=== PATIENT | female | born 1985 | race Caucasian/White ===

== ENCOUNTER 2018-11-14 11:14 | Emergency (ER) | payer OTHER ==
[2018-11-14 11:36] VITALS: TEMP 98.1
--- NOTE | 2018-11-14 12:23 | ED ---
General Adult HPI - General Source: patient, family, RN notes reviewed Mode of arrival: ambulatory Limitations: no limitations <Tre Saucedo - Last Filed: 11/14/18 14:04> <John Nur - Last Filed: 11/14/18 14:33> - General Chief complaint: Extremity Problem,Nontraumatic Stated complaint: Swelling in feet Time Seen by Provider: 11/14/18 11:40 - History of Present Illness Initial comments: 33-year-old female without any significant past medical history presents to the emergency determine for bilateral ankle swelling. Patient states this has been ongoing for a couple days. Patient states she is constantly on her feet and walks 20,000 steps per day. 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 Patient thinks she sees some swelling in her fingers as well. Patient states the swelling improved at night when she had her feet elevated on the bed and then worsened again this morning after she began walking around. States she has some minor pain of the bilateral ankles. Denies any chest pain or shortness of breath. Patient has no other complaints at this time including shortness of breath, chest pain, abdominal pain, nausea or vomiting, headache, or visual changes. (Tre Saucedo) - Related Data Allergies Allergy/AdvReac Type Severity Reaction Status Date / Time Penicillins Allergy Itching Verified 11/14/18 11:32 Review of Systems ROS Other: All systems not noted in ROS Statement are negative. <Tre Saucedo - Last Filed: 11/14/18 14:04> ROS Other: All systems not noted in ROS Statement are negative. <John Nur - Last Filed: 11/14/18 14:33> ROS Statement: Those systems with pertinent positive or pertinent negative responses have been documented in the HPI. Past Medical History Past Medical History: No Reported History History of Any Multi-Drug Resistant Organisms: None Reported Past Surgical History: Breast Surgery, Tonsillectomy Past Psychological History: Anxiety, Depression Smoking Status: Current every day smoker Past Alcohol Use History: Occasional Past Drug Use History: None Reported <Tre Saucedo - Last Filed: 11/14/18 14:04> General Exam Limitations: no limitations General appearance: alert, in no apparent distress Head exam: Present: atraumatic, normocephalic, normal inspection Eye exam: Present: normal appearance, PERRL, EOMI. Absent: scleral icterus, conjunctival injection, periorbital swelling ENT exam: Present: normal exam, mucous membranes moist Neck exam: Present: normal inspection, full ROM. Absent: tenderness, meningismus, lymphadenopathy Respiratory exam: Present: normal lung sounds bilaterally. Absent: respiratory distress, wheezes, rales, rhonchi, stridor Cardiovascular Exam: Present: regular rate, normal rhythm, normal heart sounds. Absent: systolic murmur, diastolic murmur, rubs, gallop, clicks GI/Abdominal exam: Present: soft, normal bowel sounds. Absent: distended, tenderness, guarding, rebound, rigid Extremities exam: Present: other (Patient has 1+ pitting edema in the bilateral feet and ankles. No significant pain. Swelling is equal bilaterally. Patient states she feels like she has lydia her fingers however there is none evident on exam. No S3 status intact in bilateral lower extremities with the DP pulse of 2+ and capillary refill less than 2 seconds. Normal skin color.) Neurological exam: Present: alert, oriented X3, CN II-XII intact Psychiatric exam: Present: normal affect, normal mood <Tre Saucedo - Last Filed: 11/14/18 14:04> Course Vital Signs 11/14/18 11/14/18 11:32 14:13 Temperature 98.1 F Pulse Rate 60 58 L Respiratory 18 16 Rate Blood Pressure 111/71 112/68 O2 Sat by Pulse 96 98 Oximetry Medical Decision Making - Lab Data Result diagrams: 11/14/18 12:22 11/14/18 12:22 <Tre Saucedo - Last Filed: 11/14/18 14:04> - Lab Data Result diagrams: 11/14/18 12:22 11/14/18 12:22 <John Nur - Last Filed: 11/14/18 14:33> - Medical Decision Making 33-year-old female without any significant past medical history presents for sunni ateral leg sling. 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 States it has been 100s again she was outside mowing her lawn. States the swelling is in her ankles and seemed to get better when she was sleeping and had her legs elevated and then worsened again this morning. On exam there is 1+ pitting edema noted of bilateral ankles. No significant tenderness noted of the calves. No redness or erythema. Negative Homans sign bilaterally. Lab work was obtained to evaluate kidney function. CBC and CMP are unremarkable. GFR greater than 90. Urine does not show any sign of evidence of infection. HCG is negative. BNP is normal. She was also evaluated by Dr. Nur. Offered ultrasound as well to evaluate for DVT but the patient refuses. In depth conversation was had with patient about compression stockings and keeping feet elevated when resting. Patient will follow up with primary care and return here for any worsening symptoms which were discussed with her including pain, redness, or worsening swelling. (Tre Saucedo) I saw and evaluated this patient with the PA. I agree with work up and disposition. I spoke to the patient regarding the possibility of a DVT though she is very low risk. I offered a lower extremity duplex, but patient declined. I discussed concerning signs and symptoms that should prompt immediate return to the ED, she verbalizes understanding. Wells' Criteria for DVT from [email or web address] on 11/14/2018 All calculations should be rechecked by clinician prior to use RESULT SUMMARY: -2 points Low risk group for DVT. Unlikely according to Wells DVT studies. INPUTS: Active cancer > 0 = No Bedridden recently >3 days or major surgery within 12 weeks > 0 = No Calf swelling >3 cm compared to the other leg > 0 = No Collateral (nonvaricose) superficial veins present > 0 = No Entire leg swollen > 0 = No Localized tenderness along the deep venous system > 0 = No Pitting edema, confined to symptomatic leg > 0 = No Paralysis, paresis, or recent plaster immobilization of the lower extremity > 0 = No Previously documented DVT > 0 = No Alternative diagnosis to DVT as likely or more likely > -2 = Yes (John Nur) - Lab Data Lab Results 11/14/18 11/14/18 11/14/18 Range/Units 12:22 12:22 12:22 WBC 5.2 (3.8-10.6) k/uL RBC 3.89 (3.80-5.40) m/uL Hgb 12.9 (11.4-16.0) gm/dL Hct 37.7 (34.0-46.0) % MCV 96.9 (80.0-100.0) fL MCH 33.3 (25.0-35.0) pg MCHC 34.4 (31.0-37.0) g/dL RDW 14.1 (11.5-15.5) % Plt Count 228 (150-450) k/uL Neutrophils % (Manual) 55 % Lymphocytes % (Manual) 37 % Monocytes % (Manual) 6 % Eosinophils % (Manual) 2 % Neutrophils # (Manual) 2.86 (1.3-7.7) k/uL Lymphocytes # (Manual) 1.92 (1.0-4.8) k/uL Monocytes # (Manual) 0.31 (0-1.0) k/uL Eosinophils # (Manual) 0.10 (0-0.7) k/uL Nucleated RBCs 0 (0-0) /100 WBC Manual Slide Review Performed RBC Morphology Normal Sodium 138 (137-145) mmol/L Potassium 4.3 (3.5-5.1) mmol/L Chloride 108 H (98-107) mmol/L Carbon Dioxide 26 (22-30) mmol/L Anion Gap 4 mmol/L BUN 7 (7-17) mg/dL Creatinine 0.83 (0.52-1.04) mg/dL Est GFR (CKD-EPI)AfAm >90 (>60 ml/min/1.73 sqM) Est GFR (CKD-EPI)NonAf >90 (>60 ml/min/1.73 sqM) Glucose 90 (74-99) mg/dL Calcium 9.5 (8.4-10.2) mg/dL Total Bilirubin 0.3 (0.2-1.3) mg/dL AST 32 (14-36) U/L ALT 41 (9-52) U/L Alkaline Phosphatase 66 (38-126) U/L NT-Pro-B Natriuret Pep 147 pg/mL Total Protein 5.9 L (6.3-8.2) g/dL Albumin 3.5 (3.5-5.0) g/dL Urine Color Urine Appearance (Clear) Urine pH (5.0-8.0) Ur Specific Trevor (1.001-1.035) Urine Protein (Negative) Urine Glucose (UA) (Negative) Urine Ketones (Negative) Urine Blood (Negative) Urine Nitrite (Negative) Urine Bilirubin (Negative) Urine Urobilinogen (<2.0) mg/dL Ur Leukocyte Esterase (Negative) Urine RBC (0-5) /hpf Urine WBC (0-5) /hpf Ur Squamous Epith Cells (0-4) /hpf Urine Bacteria (None) /hpf Urine Mucus (None) /hpf Urine HCG, Qual (Not Detectd) 11/14/18 11/14/18 Range/Units 12:22 12:22 WBC (3.8-10.6) k/uL RBC (3.80-5.40) m/uL Hgb (11.4-16.0) gm/dL Hct (34.0-46.0) % MCV (80.0-100.0) fL MCH (25.0-35.0) pg MCHC (31.0-37.0) g/dL RDW (11.5-15.5) % Plt Count (150-450) k/uL Neutrophils % (Manual) % Lymphocytes % (Manual) % Monocytes % (Manual) % Eosinophils % (Manual) % Neutrophils # (Manual) (1.3-7.7) k/uL Lymphocytes # (Manual) (1.0-4.8) k/uL Monocytes # (Manual) (0-1.0) k/uL Eosinophils # (Manual) (0-0.7) k/uL Nucleated RBCs (0-0) /100 WBC Manual Slide Review RBC Morphology Sodium (137-145) mmol/L Potassium (3.5-5.1) mmol/L Chloride (98-107) mmol/L Carbon Dioxide (22-30) mmol/L Anion Gap mmol/L BUN (7-17) mg/dL Creatinine (0.52-1.04) mg/dL Est GFR (CKD-EPI)AfAm (>60 ml/min/1.73 sqM) Est GFR (CKD-EPI)NonAf (>60 ml/min/1.73 sqM) Glucose (74-99) mg/dL Calcium (8.4-10.2) mg/dL Total Bilirubin (0.2-1.3) mg/dL AST (14-36) U/L ALT (9-52) U/L Alkaline Phosphatase (38-126) U/L NT-Pro-B Natriuret Pep pg/mL Total Protein (6.3-8.2) g/dL Albumin (3.5-5.0) g/dL Urine Color Light Yellow Urine Appearance Clear (Clear) Urine pH 6.5 (5.0-8.0) Ur Specific Trevor 1.007 (1.001-1.035) Urine Protein Negative (Negative) Urine Glucose (UA) Negative (Negative) Urine Ketones Negative (Negative) Urine Blood Negative (Negative) Urine Nitrite Negative (Negative) Urine Bilirubin Negative (Negative) Urine Urobilinogen <2.0 (<2.0) mg/dL Ur Leukocyte Esterase Moderate H (Negative) Urine RBC 2 (0-5) /hpf Urine WBC 5 (0-5) /hpf Ur Squamous Epith Cells 10 H (0-4) /hpf Urine Bacteria Moderate H (None) /hpf Urine Mucus Rare H (None) /hpf Urine HCG, Qual Not Detected (Not Detectd) Disposition Is patient prescribed a controlled substance at d/c from ED?: No Time of Disposition: 14:01 <Tre Saucedo - Last Filed: 11/14/18 14:04> <John Nur - Last Filed: 11/14/18 14:33> Clinical Impression: Localized swelling of both lower legs, Dependent edema Disposition: HOME SELF-CARE Condition: Good Instructions (If sedation given, give patient instructions): Leg Edema (ED) Additional Instructions: Please keep feet elevated while resting at home. Use compression stockings. Follow-up with primary care in 1-2 days. If you start to have pain, worsening swelling, redness then return immediately to the emergency department. Referrals: Charity Smith DO [Primary Care Provider] - 1-2 days
[2018-11-14 12:49] LABS: Appearance,Urine Clear (Clear); Bacteria,Urine Moderate /hpf; Bilirubin,Urine Negative (Negative); Blood,Urine Negative (Negative); Color,Urine Light Yellow; Glucose,Urine (UA) Negative (Negative); Ketones,Urine Negative (Negative); Leukocyte Esterase,Urine Moderate (Negative); Mucus,Urine Rare /hpf; Nitrite,Urine Negative (Negative); PH, Urine 6.5 (5.0-8.0); Protein,Urine Negative (Negative); RBC,Urine 2 /hpf (0-5); Specific Gravity,Urine 1.007 (1.001-1.035); Squamous Epithelial Cell,Urine 10 /hpf (0-4); Urobilinogen,Urine <2.0 mg/dL (<2.0); WBC,Urine 5 /hpf (0-5)
[2018-11-14 12:55] LABS: ALT 41 U/L (9-52); AST 32 U/L (14-36); African American GFR (CKD) >90 (>60 ml/min/1.73 sqM); Albumin 3.5 g/dL (3.5-5.0); Alkaline Phosphatase 66 U/L (38-126); Anion Gap 4 mmol/L; Blood Urea Nitrogen 7 mg/dL (7-17); Calcium 9.5 mg/dL (8.4-10.2); Carbon Dioxide 26 mmol/L (22-30); Chloride 108 mmol/L (98-107); Glucose 90 mg/dL (74-99); Potassium 4.3 mmol/L (3.5-5.1); Sodium 138 mmol/L (137-145); Total Bilirubin 0.3 mg/dL (0.2-1.3); Total Protein 5.9 g/dL (6.3-8.2)
[2018-11-14 12:57] LABS: HCT 37.7 % (34.0-46.0); HGB 12.9 gm/dL (11.4-16.0); MCH 33.3 pg (25.0-35.0); MCHC 34.4 g/dL (31.0-37.0); MCV 96.9 fL (80.0-100.0); Mean Platelet Volume 7.2; Platelet Count 228 k/uL (150-450); RBC 3.89 m/uL (3.80-5.40); RDW 14.1 % (11.5-15.5); WBC 5.2 k/uL (3.8-10.6)
[2018-11-14 13:18] LABS: Lymphocytes # (M) 1.92 k/uL (1.0-4.8); Monocytes # (M) 0.31 k/uL (0-1.0); Neutrophils # (M) 2.86 k/uL (1.3-7.7); Neutrophils % (M) 55 %; Nucleated Red Blood Cells 0 /100 WBC (0-0); Total Cells Counted 100
[2018-11-14 14:14] VITALS: BP 112/68; PULSE 58; RESP 16
== END 2018-11-14 14:13 | disposition home or self-care (01) ==
LOC: EC 11:14
DX: R60.0 Localized edema (principal); F17.200 Nicotine dependence, unspecified, uncomplicated; Z88.0 Allergy status to penicillin; Z53.20 Procedure and treatment not carried out because of patient's decision for unspecified reasons
CPT/HCPCS: 36415; 80053; 81001; 81025; 83880; 85025; 99283

== ENCOUNTER 2023-07-22 22:31 | Emergency (ER) | payer OTHER ==
[2023-07-22 22:51] VITALS: TEMP 97.8
[2023-07-22] MEDS: FLUORESCEIN STRIPS 1 MG STRIP LEFT EYE ONE (23:11)
[2023-07-22] MEDS: PROPARACAINE 0.5% OPHTH DROPS 15 ML BTL LEFT EYE STA (23:11)
--- NOTE | 2023-07-23 00:18 | ED ---
Eye Problem HPI - General Chief complaint: Eye Problems Stated complaint: Workers comp-left eye pain Time Seen by Provider: 07/22/23 22:50 Source: patient Mode of arrival: ambulatory Limitations: no limitations - History of Present Illness Initial comments: 37-year-old female presenting with chief complaint of foreign body in the left eye. 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 She later brushed off her shoulder when she felt like something went into her eye. She thought that it was dust. When she got home she looked in the mirror and noticed a small black area and thinks that it is likely a metal shaving. She admits to foreign body sensation. No vision changes. No watering or discharge. - Related Data Allergies Allergy/AdvReac Type Severity Reaction Status Date / Time Penicillins Allergy Itching Verified 07/22/23 22:43 Review of Systems ROS Statement: Those systems with pertinent positive or pertinent negative responses have been documented in the HPI. ROS Other: All systems not noted in ROS Statement are negative. Past Medical History Past Medical History: No Reported History History of Any Multi-Drug Resistant Organisms: None Reported Past Surgical History: Breast Surgery, Tonsillectomy Past Psychological History: Anxiety, Depression Smoking Status: Former smoker Past Alcohol Use History: Occasional Past Drug Use History: None Reported General Exam Limitations: no limitations General appearance: alert, in no apparent distress Head exam: Present: atraumatic, normocephalic Eye exam: Present: PERRL, EOMI Pupils: Present: normal accommodation Expanded Sclera/Conjunctival: Foreign Body: Left Neck exam: Present: normal inspection Respiratory exam: Absent: respiratory distress Cardiovascular Exam: Present: regular rate Neurological exam: Present: alert, oriented X3 Psychiatric exam: Present: normal affect, normal mood Skin exam: Present: warm, dry Course Vital Signs 07/22/23 22:44 Temperature 97.8 F Pulse Rate 69 Respiratory 19 Rate Blood Pressure 130/86 O2 Sat by Pulse 99 Oximetry Medical Decision Making - Medical Decision Making Was pt. sent in by a medical professional or institution (CARISSA Resendiz, REGISTERED PUBLIC SURVEYOR, urgent care, hospital, or assisted...) When possible be specific @ -No Did you speak to anyone other than the patient for history (EMS, parent, family, police, friend...)? What history was obtained from this source @ -No Did you review nursing and triage notes (agree or disagree)? Why? @ -I reviewed and agree with nursing and triage notes Were old charts reviewed (outside hosp., previous admission, EMS record, old EKG, old radiological studies, urgent care reports/EKG's, assisted records)? Report findings @ -No old charts were reviewed Differential Diagnosis (chest pain, altered mental status, abdominal pain women, abdominal pain men, vaginal bleeding, weakness, fever, dyspnea, syncope, headache, dizziness, GI bleed, back pain, seizure, CVA, palpatations, mental health, musculoskeletal)? @ -Differential clues for body, corneal abrasion, corneal ulcer, conjunctivitis, this is not an all-inclusive list EKG interpreted by me (3pts min.). @ -As above X-rays interpreted by me (1pt min.). @ -None done CT interpreted by me (1pt min.). @ -None done U/S interpreted by me (1pt. min.). @ -None done What testing was considered but not performed or refused? (CT, X-rays, U/S, labs)? Why? @ -None What meds were considered but not given or refused? Why? @ -None Did you discuss the management of the patient with other professionals (professionals i.e. DrMarc, PA, REGISTERED PUBLIC SURVEYOR, lab, RT, psych nurse, rn social services, exhibit electrician, teacher, police or patrol park officer, case work aide)? Give summary @ -No Was smoking cessation discussed for >3mins.? @ -No Was critical care preformed (if so, how long)? @ -No Were there social determinants of health that impacted care today? How? (Homelessness, low income, unemployed, alcoholism, drug addiction, transportation, low edu. Level, literacy, decrease access to med. care, longterm, rehab)? @ -No Was there de-escalation of care discussed even if they declined (Discuss DNR or withdrawal of care, Hospice)? DNR status @ -No What co-morbidities impacted this encounter? (DM, HTN, Smoking, COPD, CAD, Cancer, CVA, ARF, Chemo, Hep., AIDS, mental health diagnosis, sleep apnea, morbid obesity)? @ -None Was patient admitted / discharged? Hospital course, mention meds given and route, prescriptions, significant lab abnormalities, going to OR and other pertinent info. @ -37-year-old female presenting with chief complaint of suspected foreign body to the eye. On slit-lamp examination there does appear to be a metal shard in the eye. Proparacaine is applied. I attempted to remove the foreign body with an 18-gauge needle. I was able to remove the metal piece but I was unable to remove the remaining rust ring. Patient is started on Cipro eyedrops, states that she does not wear contact lenses on a regular basis but states that she has worn them on occasion. She is also given ketorolac eyedrops for pain. She is given options for ophthalmology follow-up and instructed to call the office to follow-up tomorrow. Tetanus is updated. Discharged home. Follow-up with PCP. Report back to ER with any new or worsening symptoms. Discussed return parameters and answered all questions. Patient conveyed verbal understanding and agreed to the plan. I discussed this case in detail with my attending Dr. Valiente Undiagnosed new problem with uncertain prognosis? @ -No Drug Therapy requiring intensive monitoring for toxicity (Heparin, Nitro, Insulin, Cardizem)? @ -No Were any procedures done? @ -Metallic foreign body removed from the left eye Diagnosis/symptom? @ -Rust ring has resulted in [place] to the left eye Acute, or Chronic, or Acute on Chronic? @ -Acute Uncomplicated (without systemic symptoms) or Complicated (systemic symptoms)? @ -Uncomplicated Side effects of treatment? @ -No Exacerbation, Progression, or Severe Exacerbation? @ -No Poses a threat to life or bodily function? How? (Chest pain, [place], [place], pneumonia, PE, COPD, DKA, ARF, appy, cholecystitis, CVA, Diverticulitis, Homicidal, Suicidal, threat to staff... 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 Report back to ER with any new or worsening symptoms. Apply 2 ciprofloxacin eyedrops to the affected eye 4 times daily for 5 days You may apply 1 ketorolac eyedrop to the affected eye up to 4 times daily as needed for pain Is patient prescribed a controlled substance at d/c from ED?: No Referrals: Charity Smith, DO [Primary Care Provider] - 1-2 days Mery Murillo MD [STAFF PHYSICIAN] - 1-2 days Satya Zacarias MD [STAFF PHYSICIAN] - 1-2 days Lidia Vasquez MD [STAFF PHYSICIAN] - 1-2 days Time of Disposition: 00:17
[2023-07-23] MEDS: KETOROLAC 0.5% OPHTH DROPS 5 ML BTL LEFT EYE STA (00:48)
[2023-07-23] MEDS: CIPROFLOXACIN 0.3% OPHTH SOLN 5 ML BTL LEFT EYE STA (00:48)
[2023-07-23] MEDS: DIPH,PERTUS(ACELL)TETVAC-LF 0.5 ML VIAL IM ONE (00:48)
[2023-07-23 01:21] VITALS: BP 122/80; PULSE 72; RESP 18
== END 2023-07-23 00:53 | disposition home or self-care (01) ==
LOC: EC 22:31
DX: T15.02XA Foreign body in cornea, left eye, initial encounter (principal); Z87.891 Personal history of nicotine dependence; Z88.0 Allergy status to penicillin; Z23 Encounter for immunization
CPT/HCPCS: 90471; 90715; 99283